=== PATIENT | female | born 1955 | race Caucasian/White ===

== ENCOUNTER 2018-03-04 08:27 | Outpatient (CLI) | payer OTHER | END 2018-03-04 08:28 | disposition home or self-care (01) | LOC: RAD 08:27 ==

== ENCOUNTER 2018-03-07 08:06 | Outpatient (CLI) | payer OTHER | END 2018-03-07 08:07 | disposition home or self-care (01) | LOC: LAB 08:06 ==

== ENCOUNTER 2018-03-25 14:31 | Outpatient (CLI) | payer MEDICAID | END 2018-03-25 14:32 | disposition home or self-care (01) | LOC: RAD 14:31 ==